=== PATIENT | female | born 1995 | race Caucasian/White ===

== ENCOUNTER 2018-06-20 16:05 | Emergency (ER) | payer OTHER, BC ==
--- NOTE | 2018-06-20 17:33 | EDM.PDOC ---
ED HPI GENERAL MEDICAL PROBLEM - General Chief Complaint: Respiratory Problem Stated Complaint: INHALED CO2 AT WORK Time Seen by Provider: 06/20/18 16:20 Source of Information: Reports: Patient History Limitations: Reports: No Limitations - History of Present Illness INITIAL COMMENTS - FREE TEXT/NARRATIVE: 23 y/o female presents to ER with cc she was blasted in the face with CO2. 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 She reports going outside and breathing fresh air for 15 minutes. She states she feels nausea and headache and difficulty to take a deep breath. Her respiratory rate is 18 non labored and her saturation is 100% on room air. She is in no apparent distress and is talking without difficulty. Onset: Today, Sudden Onset Date: 06/20/18 Onset Time: 15:00 Duration: Minutes:, Intermittent Location: Reports: Face Severity: Mild Improves with: Reports: None Worsens with: Reports: Breathing Context: Reports: Activity Associated Symptoms: Reports: Nausea/Vomiting. Denies: Confusion, Chest Pain, Cough, Fever/Chills, Headaches, Shortness of Breath, Syncope Nose Pain Score (Numeric/FACES): 6 - Related Data Home Meds: Home Meds Desvenlafaxine Succinate [Pristiq] 25 mg PO DAILY 06/20/18 [History] Lisdexamfetamine Dimesylate [Vyvanse] 70 mg PO DAILY 06/20/18 [History] Past Medical History Respiratory History: Reports: Other (See Below) Other Respiratory History: previous H2S exposure Genitourinary History: Reports: Renal Calculus Social & Family History - Family History Family Medical History: Noncontributory - Tobacco Use Smoking Status *Q: Former Smoker Used Tobacco, but Quit: Yes Month/Year Tobacco Last Used: 2018 - Recreational Drug Use Recreational Drug Use: No ED ROS GENERAL - Review of Systems Review Of Systems: See Below Constitutional: Denies: Fever, Chills HEENT: Reports: No Symptoms Respiratory: Denies: Shortness of Breath Cardiovascular: Denies: Chest Pain Endocrine: Denies: Fatigue GI/Abdominal: Reports: Other (nausea). Denies: Abdominal Pain, Difficulty Swallowing : Reports: No Symptoms Musculoskeletal: Reports: No Symptoms Skin: Reports: No Symptoms Neurological: Reports: Headache. Denies: Dizziness, Numbness, Paresthesia, Syncope, Weakness Psychiatric: Reports: No Symptoms Hematologic/Lymphatic: Reports: No Symptoms Immunologic: Reports: No Symptoms ED EXAM, GENERAL - Physical Exam Exam: See Below Exam Limited By: No Limitations General Appearance: Alert, WD/WN, No Apparent Distress Eye Exam: Bilateral Eye: EOMI, PERRL Ears: Normal External Exam, Normal Canal, Hearing Grossly Normal, Normal TMs Nose: Normal Inspection, Normal Mucosa, No Blood Throat/Mouth: Normal Inspection, Normal Lips, Normal Teeth, Normal Gums, Normal Oropharynx, Normal Voice, No Airway Compromise Head: Atraumatic, Normocephalic Neck: Normal Inspection, Supple, Non-Tender, Full Range of Motion Respiratory/Chest: No Respiratory Distress, Lungs Clear, Normal Breath Sounds, No Accessory Muscle Use, Chest Non-Tender Cardiovascular: Normal Peripheral Pulses, Regular Rate, Rhythm, No Edema, No Gallop, No JVD, No Murmur, No Rub Extremities: Normal Inspection, Normal Range of Motion, Non-Tender, No Pedal Edema, Normal Capillary Refill Neurological: Alert, Oriented, CN II-XII Intact, Normal Cognition, Normal Gait, Normal Reflexes, No Motor/Sensory Deficits Psychiatric: Normal Affect, Normal Mood Skin Exam: Warm, Dry, Intact, Normal Color, No Rash Lymphatic: No Adenopathy Course - Vital Signs Last Recorded V/S: Last Vital Signs Temp 98.3 F 06/20/18 16:15 Pulse 82 06/20/18 16:15 Resp 18 06/20/18 16:15 BP 135/88 06/20/18 16:15 Pulse Ox 100 06/20/18 16:15 - Re-Assessments/Exams Free Text/Narrative Re-Assessment/Exam: 06/20/18 17:33 23 y/o female presented to ER with cc CO 2 exposure. She complained on nausea and headache but refused medications for this. She received a cool mist neb treatment and her condition improved. I do not feel she need further testing at this time. I will discharge home with instructions to follow up with her PCP. Instructed to return to the ER for any new or acute worsening symptoms. Patient verbalized understanding and is comfortable with plan for discharge. Departure - Departure Time of Disposition: 17:35 Disposition: Home, Self-Care 01 Condition: Good Clinical Impression: Carbon dioxide poisoning Qualifiers: Encounter type: initial encounter Injury intent: accidental or unintentional Qualified Code(s): T59.7X1A - Toxic effect of carbon dioxide, accidental ( unintentional), initial encounter - Discharge Information Instructions: Chemical Inhalation Injury, Adult Referrals: PCP,Unknown [Primary Care Provider] - Additional Instructions: You have been diagnosis with CO2 exposure. I recommend you use a cool mist vaporizer. Follow up with your PCP. Return to the ER for any new or acute worsening symptoms.
== END 2018-06-20 17:42 | disposition home or self-care (01) ==
LOC: JD.ED 16:05
DX: T59.7X1A Toxic effect of carbon dioxide, accidental (unintentional), initial encounter (principal); R11.2 Nausea with vomiting, unspecified; R51 Headache; Z87.891 Personal history of nicotine dependence; Z79.899 Other long term (current) drug therapy
CPT/HCPCS: 99282; 99283